=== PATIENT | female | born 1955 | race Caucasian/White ===

== ENCOUNTER 2016-04-28 07:34 | Day surgery (SDC) | payer BC ==
[~2016-04-28] VITALS: Ht 152.4 cm; Wt 69.2 kg
[2016-04-28 10:15] VITALS: BP 163/71; PULSE 69; RESP 16
[2016-04-28] MEDS ORDERED: PROPOFOL 40 ML ONE (10:27)
[2016-04-28] MEDS ORDERED: FENTAnyl 50 MCG/ML VIAL ONE (10:28)
[2016-04-28] MEDS ORDERED: MIDAZOLAM 1 MG/ML 2 ML INJ ONE (10:28)
[2016-04-28] MEDS ORDERED: METOPROLOL PO (11:16)
[2016-04-28] MEDS ORDERED: ATOR40TA68 PO (11:16)
[2016-04-28] MEDS ORDERED: LEVO50TA74 PO (11:16)
[2016-04-28 11:55] VITALS: BP 106/51; PULSE 54; RESP 18
--- NOTE | 2016-04-28 15:45 | GILP ---
DATE OF PROCEDURE: PROCEDURE: Esophagogastroduodenoscopy with biopsy and colonoscopy. INDICATION: A 60-year-old male undergoing this procedure for abdominal pain and also for colon canc er screening. The risks of the procedure, related and unrelated complications, anesthetic risks, al ternatives discussed and informed consent was obtained. DESCRIPTION OF PROCEDURE: The patient was brought to the GI lab, sedated by Dr. Abreu. After opti mum sedation, scope was passed with much ease into esophagus which was grossly within normal limits. Z line was at 34 cm. He had a 3 to 4 cm hiatal hernia. Stomach mucosa revealed gastritis. Rando m biopsies obtained. Duodenum, first and second part including ampulla appeared normal. Retroversi on done, hiatal hernia confirmed. Scope was straightened out. The Z line thoroughly inspected. It had migrated proximally. Biopsy taken to rule out Ferreira's. Scope was removed with good patient tolerance. IMPRESSION 1. Hiatal hernia, about 3 to 4 cm. 2. Normal ampulla. 3. No chronic gastritis. 4. Normal duodenum. 5. Normal esophagus. 6. Biopsy taken from the Z line which was regular to rule out Ferreira's. PLAN: To review histopathology. The patient needs sonogram to make sure there is no gallstone. COLONOSCOPY: The patient was turned around, scope was passed with much ease into rectum after digit al examination which was normal and advanced slowly all the way into the cecum. Appendiceal orifice identified. IC valve was very prominent which appeared normal. While coming out, the rest of the colon thoroughly inspected which was totally normal. No diverticula. No polyps seen. Small hemorr hoids identified. IMPRESSION: 1. Normal findings all the way into cecum. 2. Hemorrhoids. 3. Prominent IC valve. 4. Clarity and cleanliness was good. PLAN: Stay on high fiber diet. Dictated By: CHONG LYON/MELLO Conf#: [id number] DID#: [id number]
== END 2016-04-28 12:18 | disposition home or self-care (01) ==
LOC: GIL 07:34
PROVIDERS: ATTEND Internal Medicine Gastroenterology
DX: K21.0 Gastro-esophageal reflux disease with esophagitis (principal); K44.9 Diaphragmatic hernia without obstruction or gangrene; I10 Essential (primary) hypertension; E11.9 Type 2 diabetes mellitus without complications
CPT/HCPCS: 43239; 45378; 88305; 88312; 88313; J2250; J3010; Z7610